=== PATIENT | female | born 1985 | race Caucasian/White ===

== ENCOUNTER 2017-08-07 15:16 | Emergency (ER) | payer SELFPAY ==
[2017-08-07 15:38] VITALS: RESP 16; O2SAT 98
[2017-08-07 16:21] LABS: BASO # 0.1 K/uL (0.0-0.2); BASO % 1.6 % (0.0-2.0); HEMOGLOBIN 11.8 g/dL (11.0-16.0); LYMPH # 0.4 K/uL (1.0-4.3); LYMPH % 5.3 % (20.0-40.0); MEAN CELL VOLUME 83.3 fL (81.0-99.0); MEAN CORPUSCULAR HEMOGLOBIN 28.6 pg (27.0-31.0); MEAN CORPUSCULAR HGB CONC 34.3 g/dL (33.0-37.0); MEAN PLATELET VOLUME 8.1 fL (7.2-11.7); MONO # 0.3 K/uL (0.0-0.8); NEUT # 7.3 K/uL (1.8-7.0); NEUT % 89.1 % (50.0-75.0); NRBC % 0.1 % (0.0-2.0); PLATELET COUNT 306 K/uL (130-400); RBC 4.12 Mil/uL (3.80-5.20); RED CELL DISTRIBUTION WIDTH 15.1 % (11.5-14.5); WHITE BLOOD COUNT 8.1 K/uL (4.8-10.8)
[2017-08-07 16:27] LABS: SQUAMOUS EPITHIAL 6 /hpf (0-5); URINE BACTERIA FEW (<OCC); URINE BILIRUBIN NEGATIVE (NEGATIVE); URINE BLOOD 1+ (NEGATIVE); URINE CLARITY Hazy (Clear); URINE COLOR Yellow (YELLOW); URINE GLUCOSE (UA) NORMAL (Normal); URINE LEUKOCYTE ESTERASE NEG Leu/uL (Negative); URINE PROTEIN 1+ mg/dL (NEGATIVE); URINE UROBILINOGEN NORMAL mg/dL (0.2-1.0)
[2017-08-07 16:31] LABS: ALB/GLOB RATIO 1.1 (1.0-2.1); ALBUMIN 4.1 g/dL (3.5-5.0); ALT/SGPT 26 U/L (9-52); AST/SGOT 18 U/L (14-36); BLOOD UREA NITROGEN 7 mg/dL (7-17); CALCIUM 8.7 mg/dl (8.6-10.4); GFR AFRICAN-AMERICAN > 60; GFR NON-AFRICAN AMERICAN > 60; LIPASE 52 U/L (23-300)
[2017-08-07 16:46] LABS: BANDS 5 % (0-2); LYMPHOCYTE 6 % (20-40); MONOCYTE 6 % (0-10); NEUTROPHIL 83 % (50-75); TOTAL CELLS COUNTED 100
[2017-08-07 16:47] LABS: ANISOCYTOSIS SLIGHT; PLATELET ESTIMATE NORMAL (NORMAL)
[2017-08-07 16:48] LABS: HYPOCHROMIC SLIGHT; POLYCHROMIC SLIGHT
--- NOTE | 2017-08-07 16:54 | C.PDOC ---
History Of Present Illness 31 year old female presents to the ED for evaluation of abdominal pain which began 2 days ago. Patient reports symptoms are associated with nausea, vomiting , and diarrhea. She notes the pain is around her epigastrium and radiates to her left lower quadrant. Patient has history of gallbladder removal. She denies fever, chills, dysuria, hematuria, vaginal bleeding and vaginal discharge. Time Seen by Provider: 08/07/17 15:35 Chief Complaint (Nursing): Abdominal Pain History Per: Patient History/Exam Limitations: no limitations Onset/Duration Of Symptoms: Days (2) Current Symptoms Are (Timing): Still Present Location Of Pain/Discomfort: Epigastric, LLQ Radiation Of Pain To:: None Quality Of Discomfort: "Pain" Associated Symptoms: denies: Fever, Chills, Urinary Symptoms Additional History Per: Patient Abnormal Vaginal Bleeding: No Past Medical History Reviewed: Historical Data, Nursing Documentation, Vital Signs Vital Signs: Last Vital Signs Temp 98.1 F 08/07/17 15:35 Pulse 105 H 08/07/17 15:35 Resp 16 08/07/17 15:35 BP 107/72 08/07/17 15:35 Pulse Ox 98 08/07/17 19:56 - Medical History PMH: No Chronic Diseases Surgical History: Appendectomy, Cholecystectomy Family History: States: Unknown Family Hx - Social History Hx Alcohol Use: No Hx Substance Use: No - Immunization History Hx Tetanus Toxoid Vaccination: No Hx Influenza Vaccination: No Hx Pneumococcal Vaccination: No Review Of Systems Gastrointestinal: Positive for: Nausea, Vomiting, Abdominal Pain, Diarrhea Genitourinary: Negative for: Dysuria, Hematuria, Vaginal Discharge, Vaginal Bleeding Physical Exam - Physical Exam Appears: Non-toxic, No Acute Distress Skin: Normal Color, Warm, Dry Head: Atraumatic, Normacephalic Eye(s): bilateral: Normal Inspection Oral Mucosa: Moist Neck: Supple Chest: Symmetrical, No Deformity, No Tenderness Cardiovascular: Rhythm Regular, No Murmur Respiratory: Normal Breath Sounds, No Rales, No Rhonchi, No Wheezing Gastrointestinal/Abdominal: Soft, Tenderness (to epigastrium and left lower quadrant on palpation ), No Guarding, No Rebound Extremity: Normal ROM, Capillary Refill (less than 2 seconds ) Neurological/Psych: Oriented x3, Normal Speech, Normal Cognition ED Course And Treatment - Laboratory Results Result Diagrams: 08/07/17 16:13 08/07/17 16:13 O2 Sat by Pulse Oximetry: 98 (on RA ) Pulse Ox Interpretation: Normal - CT Scan/US Transvaginal US Other Rad Studies (CT/US): Read By Radiologist, Radiology Report Reviewed CT/US Interpretation: EXAM: US First Trimester, Transabdominal. US , Transvaginal. CLINICAL HISTORY: 31 years old, female; Pain; Other: Abd pain; Gestational age or lmp: 3-25-18; ; Prior. surgery; Surgery date: 6+ months; Surgery type: 2 c-sections; Additional info: Abd. Pain. TECHNIQUE: Real-time transabdominal and transvaginal obstetrical ultrasound of the maternal pelvis and a first. trimester with image documentation. Transvaginal imaging was used for better evaluation. of the fetus and adnexa. COMPARISON: No relevant prior studies available. FINDINGS: Technically limited study. Gestation: Single live intrauterine . Estimated gestational age based on crown-rump. length of 6 weeks 3 days. Heart rate noted at 122 bpm. Uterus/cervix: No acute abnormality as visualized. No myometrial mass. Ovaries: Bilateral Doppler flow. 2.3 cm cyst in the left ovary. 3 mm calcification in the right ovary. Free fluid: Small amount of free fluid. IMPRESSION: Technically limited study. Follow up imaging recommended. Single live intrauterine . Estimated gestational age based on crown- rump length of 6. weeks 3 days. Heart rate noted at 122 bpm. 2.3 cm cyst in the left ovary. 3 mm calcification in the right ovary. Small amount of free fluid. Medical Decision Making Medical Decision Making: Impression: abdominal pain Plan: * bloodwork * urinalysis * CT A/P * OB Transvaginal Ultrasound * K-Dur PO * Protonix IVP * Tylenol PO * Zofran IVP * reassess and disposition Progress: Bloodwork, urinalysis, OB Transvaginal Ultrasound ordered and reviewed. Results are positive for . K-Dur PO, Protonix IVP, Tylenol PO, and Zofran IVP administered. discussed results with patient. She states she is planning termination of fetus and would like more pain medication. will administer toradol and discharge patient home and advise follow up tomorrow as planned by patient. Disposition Counseled Patient/Family Regarding: Studies Performed, Diagnosis, Need For Followup, Rx Given - Disposition Disposition: HOME/ ROUTINE Disposition Time: 20:37 Condition: STABLE Additional Instructions: follow up with gatekeeper tomorrow as planned take medications as prescribed return to hospital if symptoms worsens or progress Prescriptions: Famotidine [Pepcid] 20 mg PO BID #20 tab Ondansetron ODT [Zofran ODT] 4 mg PO TID PRN #12 odt PRN Reason: Nausea/Vomiting Instructions: Ovarian Cysts, Threatened Miscarriage Forms: [facility] (Citizen Of [place]), General Discharge Instructions - Clinical Impression Clinical Impression: Abdominal pain, Intrauterine - Scribe Statement The provider has reviewed the documentation as recorded by the Scribe (Andra Bustamante) Provider Attestation: All medical record entries made by the Scribe were at my direction and personally dictated by me. I have reviewed the chart and agree that the record accurately reflects my personal performance of the history, physical exam, medical decision making, and the department course for this patient. I have also personally directed, reviewed, and agree with the discharge instructions and disposition.
[2017-08-07] MEDS ORDERED: Potassium Chloride 20 mEq ER Tab PO STA (17:19)
[2017-08-07] MEDS ORDERED: Potassium Chloride 20 mEq ER Tab PO ONE (18:21)
--- NOTE | 2017-08-07 19:51 | US ---
EXAM: US First Trimester, Transabdominal US , Transvaginal CLINICAL HISTORY: 31 years old, female; Pain; Other: Abd pain; Gestational age or lmp: 3-25-18; ; Prior surgery; Surgery date: 6+ months; Surgery type: 2 c-sections; Additional info: Abd. Pain TECHNIQUE: Real-time transabdominal and transvaginal obstetrical ultrasound of the maternal pelvis and a first trimester with image documentation. Transvaginal imaging was used for better evaluation of the fetus and adnexa. COMPARISON: No relevant prior studies available. FINDINGS: Technically limited study. Gestation: Single live intrauterine . Estimated gestational age based on crown-rump length of 6 weeks 3 days. Heart rate noted at 122 bpm. Uterus/cervix: No acute abnormality as visualized. No myometrial mass. Ovaries: Bilateral Doppler flow. 2.3 cm cyst in the left ovary. 3 mm calcification in the right ovary. Free fluid: Small amount of free fluid. IMPRESSION: Technically limited study. Follow up imaging recommended. Single live intrauterine . Estimated gestational age based on crown-rump length of 6 weeks 3 days. Heart rate noted at 122 bpm. 2.3 cm cyst in the left ovary. 3 mm calcification in the right ovary. Small amount of free fluid.
[2017-08-07 21:12] VITALS: BP 105/70; PULSE 87; TEMP 98.2
== END 2017-08-07 21:18 | disposition home or self-care (01) ==
LOC: C.ER 15:16
DX: O26.891 Other specified pregnancy related conditions, first trimester (principal); R10.9 Unspecified abdominal pain; Z3A.01 Less than 8 weeks gestation of pregnancy
CPT/HCPCS: 76805; 76817; 80053; 81001; 83690; 84702; 85025; 86850; 86900; 96374; 96375; 99285; J1885; J2405